=== PATIENT | female | born 1980 ===

== ENCOUNTER 2018-10-10 07:09 | Day surgery (SDC) | payer BC ==
[~2018-10-10 07:09] MED LIST: Buffered Lidocaine 1% SYRIN* 1 ML/SYRINGE INTRADERM ONE; Lactated Ringers 1000 ML Bag* 1,000 ML IV SCH; Sodium Citrate/Citric Acid* 15 ML UDC PO ONE
[2018-10-10] MEDS ORDERED: Sodium Citrate/Citric Acid* 15 ML UDC ONE (07:57)
[2018-10-10] MEDS ORDERED: ceFAZolin 2 GM PREMIX in ORs 2 GM/50 ML BAG IVPB ONE (07:57)
[2018-10-10] MEDS ORDERED: Bupivacaine 0.25% SDV* 30 ML ONE (09:46)
[2018-10-10] MEDS ORDERED: fentaNYL* 50 MCG/ML 2 ML VIAL (100 MCG VIAL) ONE (09:58)
[2018-10-10] MEDS ORDERED: Propofol* 10 MG/ML 20 ML BTL ONE (09:58)
[2018-10-10] MEDS ORDERED: Lidocaine 2% PF * 5 ML VIAL ONE (09:58)
[2018-10-10] MEDS ORDERED: Ketorolac INJ* 30 MG/ML 1 ML VIAL IV PRN (10:30)
[2018-10-10] MEDS ORDERED: fentaNYL* 50 MCG/ML 2 ML VIAL (100 MCG VIAL) IV PRN (10:30)
[2018-10-10] MEDS ORDERED: Ondansetron INJ* 2 MG/ML VIAL IV PRN (10:30)
[2018-10-10] MEDS ORDERED: Naloxone* 0.4 MG/ML 1 ML VIAL IV PRN (10:30)
[2018-10-10 12:35] VITALS: BP 115/70
--- NOTE | 2018-10-11 01:24 | OP ---
DATE OF OPERATION: 10/10/18 - [facility] DATE OF : 78 SURGEON: Raf Santa MD PROJECT ECONOMIST: DANNIE Brewer. An home care assistant was needed for the entirety of the procedure to aid in positioning of the arm and retraction. ANESTHESIOLOGIST: Dr. Leonard. ANESTHESIA: General. PRE-OP DIAGNOSIS: Left index finger flexor digitorum profundus zone 1 tendon laceration. POST-OP DIAGNOSIS: Left index finger flexor digitorum profundus zone 1 tendon laceration. OPERATIVE PROCEDURE: Repair of zone 1 left index finger flexor digitorum profundus laceration. INDICATIONS: Valorie lacerated the tendon with a knife. The digital nerves, on exam, seem like they are preserved. We had talked about risks and benefits. She understands there is a risk of tendon re-rupture, risk of pull out of the suture anchors, the risk of stiffness, she wants to proceed with surgery. ESTIMATED BLOOD LOSS: 2 mL. COMPLICATIONS: None. FINDINGS: See above and below. DESCRIPTION OF PROCEDURE: Valorie was seen in the preoperative holding area. The correct site, side, and procedure were identified. We came back to the operating room. The arm was prepped and draped in usual fashion and time-out was performed. The arm was exsanguinated with the Esmarch and the tourniquet was inflated to 250 mmHg. She had a transverse laceration in the DIP joint flexion crease. I took an incision obliquely from distal radial to proximal ulnar and then distally from proximal radial to the distal mid aspect of the fingertip and I identified the digital nerve radially, it was not lacerated. I then dissected down and identified the volar plate. There was a full thickness flexor tendon laceration and the tendon was held up just proximal to the volar plate. I released a little bit of the distal aspect of the tendon sheath. I then whip- stitched a 3-0 Prolene suture in the distal centimeter of the tendon. This was used to pull the tendon down and get it back into position. Identified the tendon stump distally. I placed 2 Arthrex lillie suture anchors in standard fashion in the footprint of the FDP tendon. I then used a 3-0 FiberWire suture on each suture anchor to whipstitch up about a cm and a half into the tendon, one came down the radial aspect of the tendon and the other down the ulnar aspect of the tendon. I then used my pull suture to get excellent tendon to bone apposition and both whipstitches were tied off. There was excellent apposition of the footprint of the tendon back down to the bone. The Prolene suture that I had used to provide traction on the suture, I then checked to make sure it would still glide through to the tendon, it did, so I took a Pasha needle and place to either limb of it around the edge of the distal phalanx and out the mid aspect of the nail plate. Suture was then tied off as a pull out suture over the nail plate. Everything was looking good at this point. The wound was irrigated out. Skin was closed with 4-0 nylon suture. A digital block was performed with 0.25% Marcaine. The wound was dressed and a dorsal blocking splint with the wrist in neutral flexion, MP joints in maximal flexion , and the IP joints out straight was applied. Tourniquet was deflated and the finger pinked up immediately. She was taken to the recovery room in stable condition. [id number]/CPS #: [id number] ZAIN
== END 2018-10-10 12:28 | disposition home or self-care (01) ==
LOC: OREAST 07:09
PROVIDERS: ATTEND Orthopaedic Surgery Hand Surgery
DX: S66.121A Laceration of flexor muscle, fascia and tendon of left index finger at wrist and hand level, initial encounter (principal); W26.0XXA Contact with knife, initial encounter; Y92.9 Unspecified place or not applicable
CPT/HCPCS: 81025; A9270-GY; C1713; J0690; J2704; J3010